=== PATIENT | male | born 1990 | race Caucasian/White ===

== ENCOUNTER 2018-02-24 04:21 | Emergency (ER) | payer OTHER ==
[2018-02-24 04:55] VITALS: BP 132/77; PULSE 97; RESP 16; TEMP 97.8; O2SAT 100
[2018-02-24] MEDS ORDERED: SODIUM CHLOR 0.9% 1000 ML INJ 1,000 ML IV ONE (05:00)
--- NOTE | 2018-02-24 05:40 | PD ---
HPI Chief Complaint: Medical Clearance Time Seen by Provider: 04:59 Travel History International Travel<30 days: No Contact w/Intl Traveler<30days: No Traveled to known affect area: No History of Present Illness HPI 27-year-old male with no past medical history, brought in in custody after he was found to have cocaine in his possession. Patient admits to drinking a large amount of alcohol tonight. Patient was brought here for medical clearance for long-term. The patient denies any other ingestion other than alcohol. When asked about the cocaine, he could not state why he was in possession of it. [facility] Past Medical History Medical History: Denies Significant Hx Diminished Hearing: No Past Surgical History Surgical History: No Previous Surgery Social History Alcohol Use: Yes (OCCASIONALLY ) Tobacco Use: No Substance Use: No (DENIES ) Allergies-Medications (Allergen,Severity, Reaction): Coded Allergies: No Known Allergies (Unverified , 02/24/18) Review of Systems Except as stated in HPI: all other systems reviewed are Neg General / Constitutional: No: Fever, Chills HENT: No: Headaches, Lightheadedness Cardiovascular: No: Chest Pain or Discomfort, Palpitations Respiratory: No: Cough, Shortness of Breath Gastrointestinal: No: Nausea, Vomiting, Abdominal Pain Musculoskeletal: No: Weakness, Pain Skin: No Rash, No Itching Neurologic: Positive: Slurred Speech, No: Weakness, Dizziness, Headache Physical Exam Narrative GENERAL: Well-nourished, well-developed patient, in no acute respiratory distress. SKIN: Focused skin assessment warm/dry. HEAD: Normocephalic/atraumatic. EYES: No scleral icterus. No injection or drainage. NECK: Supple, trachea midline. No JVD or lymphadenopathy. CARDIOVASCULAR: Regular rate and rhythm without murmurs, gallops, or rubs. RESPIRATORY: Breath sounds equal bilaterally. No accessory muscle use. GASTROINTESTINAL: Abdomen soft, non-tender, nondistended. MUSCULOSKELETAL: No cyanosis, or edema. NEUROLOGICAL: Awake and alert. Cranial nerves II through XII intact. Motor and sensory grossly within normal limits. Five out of 5 muscle strength in all muscle groups. Slight slurred speech. Data Data Last Documented VS Vital Signs Date Time Temp Pulse Resp B/P (MAP) Pulse Ox O2 Delivery O2 Flow Rate FiO2 02/24/18 04:55 97.8 97 16 132/77 (95) 100 Orders Orders Basic Metabolic Panel (Bmp) (02/24/18 04:59) Iv Access Insert/Monitor (02/24/18 04:59) Ecg Monitoring (02/24/18 04:59) Oximetry (02/24/18 04:59) Drug Screen, Random Urine (02/24/18 04:59) Alcohol (Ethanol) (02/24/18 04:59) Sodium Chlor 0.9% 1000 Ml Inj (Ns 1000 M (02/24/18 05:00) Labs Laboratory Tests Test 02/24/18 05:20 02/24/18 05:30 Blood Urea Nitrogen 11 MG/DL Creatinine 1.00 MG/DL Random Glucose 104 MG/DL Calcium Level 8.5 MG/DL Sodium Level 141 MEQ/L Potassium Level 4.1 MEQ/L Chloride Level 105 MEQ/L Carbon Dioxide Level 22.2 MEQ/L Anion Gap 14 MEQ/L Estimat Glomerular Filtration Rate 90 ML/MIN Ethyl Alcohol Level 292 MG/DL Urine Opiates Screen NEG Urine Barbiturates Screen NEG Urine Amphetamines Screen NEG Urine Benzodiazepines Screen NEG Urine Cocaine Screen POS Urine Cannabinoids Screen NEG MDM Medical Decision Making Medical Screen Exam Complete: Yes Emergency Medical Condition: Yes Differential Diagnosis Alcohol intoxication versus polysubstance abuse versus metabolic derangement Narrative Course 27-year-old male presents here in custody for medical clearance for long-term. Patient admits to drinking alcohol. Patient has a alcohol level 292. He has been here about 2 and half hours. He is awake arousable. Patient will ambulate and answer questions. Patient also had cocaine on his tox screen. He will be discharged in the custody of police [employer] prec[facility] and will be taken to long-term. Diagnosis Primary Impression: Alcohol intoxication Additional Impression: Cocaine abuse Additional Instructions: Stop using drugs Disposition: [address] LAW ENFORCEMNT Condition: Stable Que Mccauley MD Feb 24, 2018 05:40
[2018-02-24 05:50] LABS: BICARBONATE 22.2 MEQ/L (21.0-32.0); CALCIUM 8.5 MG/DL (8.5-10.1)
== END 2018-02-24 06:58 ==
LOC: NEPE 04:21
DX: F10.129 Alcohol abuse with intoxication, unspecified (principal); F14.10 Cocaine abuse, uncomplicated
CPT/HCPCS: 80048; 80307; 99283; J7030